=== PATIENT | male | born 2005 | race African-American/Black ===

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

== ENCOUNTER 2024-04-10 10:15 | Emergency (ER) | payer MEDICAID ==
[~2024-04-10] VITALS: Ht 177.8 cm; Wt 57.0 kg
[2024-04-10 10:42] VITALS: BP 99/56; PULSE 67; RESP 16; TEMP 98.5; O2SAT 100
[2024-04-10] MEDS: LIDOCAINE HCL 1% 20ML VIAL (Pyxis) INJ INFIL ONE (11:16)
[2024-04-10] MEDS ORDERED: BO1 TP (12:05)
== END 2024-04-10 13:31 | disposition home or self-care (01) ==
LOC: ER 10:15
DX: S61.211A Laceration without foreign body of left index finger without damage to nail, initial encounter (principal); J45.909 Unspecified asthma, uncomplicated; D57.80 Other sickle-cell disorders without crisis; Z98.890 Other specified postprocedural states; Z88.0 Allergy status to penicillin; Z88.8 Allergy status to other drugs, medicaments and biological substances; X58.XXXA Exposure to other specified factors, initial encounter; Y93.89 Activity, other specified; Y92.89 Other specified places as the place of occurrence of the external cause; Y99.8 Other external cause status
CPT/HCPCS: 12002; 99282; J3490

== ENCOUNTER 2024-04-17 08:47 | Emergency (ER) | payer MEDICAID ==
[~2024-04-17] VITALS: Ht 177.8 cm; Wt 59.0 kg
[~2024-04-17 08:47] MED LIST: BO1 TP
[2024-04-17 08:56] VITALS: O2SAT 98
[2024-04-17 10:25] VITALS: BP 117/62; PULSE 70; RESP 20; TEMP 36.72516; O2SAT 98
== END 2024-04-17 11:11 | disposition home or self-care (01) ==
LOC: ER 08:47
DX: S61.211D Laceration without foreign body of left index finger without damage to nail, subsequent encounter (principal); J45.909 Unspecified asthma, uncomplicated; Z88.0 Allergy status to penicillin; X58.XXXD Exposure to other specified factors, subsequent encounter
CPT/HCPCS: 99281; Z7610